=== PATIENT | female | born 1995 | race Caucasian/White ===

== ENCOUNTER 2020-09-26 19:04 | Emergency (ER) | payer OTHER ==
[~2020-09-26] VITALS: Ht 162.6 cm; Wt 213.6 kg
[2020-09-26] MEDS ORDERED: SERT-158 PO (19:17)
[2020-09-26] MEDS ORDERED: ONDANSETRON HCL 4 MG/2 ML VIAL IM ONE (19:45)
[2020-09-26 23:05] VITALS: BP 128/75
== END 2020-09-26 23:06 | disposition home or self-care (01) ==
LOC: EMS 19:09
DX: S06.0X9A Concussion with loss of consciousness of unspecified duration, initial encounter (principal); J45.909 Unspecified asthma, uncomplicated; F41.9 Anxiety disorder, unspecified; F32.9 Major depressive disorder, single episode, unspecified; W18.09XA Striking against other object with subsequent fall, initial encounter; Y93.11 Activity, swimming; Y92.89 Other specified places as the place of occurrence of the external cause; Y99.8 Other external cause status
CPT/HCPCS: 70450; 72125; 96372; 99285; J2405